=== PATIENT | male | born 1970 | race Caucasian/White ===

== ENCOUNTER → 2025-06-15 09:32 | Outpatient (REF) | payer OTHER, SELFPAY ==
[2025-06-15 11:42] LABS: Hematocrit 42.1 % (39.0-52.0); Hemoglobin 14.6 g/dL (13.0-18.0); Mean Corp Hgb Conc. 34.7 g/dL (33.0-37.0); Mean Corpuscular Volume 90.1 fL (80.0-94.0); Nucleated Red Blood Cells % 0 % (-); Platelet Count 251 10^3/uL (130-400); Red Cell Dist. Width 12.7 % (11.5-14.5)
[2025-06-15 12:03] LABS: ALT (SGPT) 168 U/L (0-50); AST (SGOT) 91 U/L (17-59); Albumin 4.1 g/dl (3.5-5.0); Alkaline Phosphatase 69 U/L (38-126); Blood Urea Nitrogen 12 mg/dl (9-20); Calcium 9.3 mg/dl (8.4-10.2); Carbon Dioxide 27 mmol/L (22-30); Chloride 103 mmol/L (98-107); Glucose 180 mg/dl (70-99); HDL Cholesterol 40 mg/dl; LDL Cholesterol, Calculated 108 mg/dl; Potassium 4.1 mmol/L (3.5-5.1); Sodium 141 mmol/L (135-145); Total Protein 7.5 g/dl (6.3-8.2); Very Low Density Lipoprotein 15 mg/dl (0-30); eGFR > 60.00
[2025-06-15 12:08] LABS: Glycohemoglobin (HgbA1c) 7.1 % (4.0-5.6)
[2025-06-15 12:26] LABS: PSA, Total - Screen 0.48 ng/ml (0.0-4.0)
== END ==
LOC: CLINIC 09:32
PROVIDERS: ATTENDING PHYSICIAN Family Medicine
DX: M16.51 Unilateral post-traumatic osteoarthritis, right hip (principal); M17.32 Unilateral post-traumatic osteoarthritis, left knee; Z00.00 Encounter for general adult medical examination without abnormal findings; Z13.220 Encounter for screening for lipoid disorders; E66.01 Morbid (severe) obesity due to excess calories; Z13.1 Encounter for screening for diabetes mellitus
CPT/HCPCS: 36415; 73502; 73564; 80053; 80061; 83036; 85025; G0103